=== PATIENT | female | born 2000 | race Caucasian/White ===

== ENCOUNTER 2021-10-18 14:26 | Inpatient (IN) | payer MEDICAID ==
[~2021-10-18] VITALS: Ht 154.9 cm; Wt 63.6 kg
[2021-10-18] VITALS (36 sets, daily range): BP systolic 103–142; BP diastolic 55–93; PULSE 70–811; TEMP 97.4–99.6
--- NOTE | 2021-10-18 14:35 | NUR ---
PT AMBULATORY TO UNIT, SENT OVER FROM CLINIC FOR CONFIRMED SROM VIA SPEC EXAM IN OFFICE PER REPORT. PT REPORTS SHE FIRST FELT LEAKING OF FLUID YESTERDAY AT APPROXIMATELY 1730. REPORTS FLUID HAS A "PINK TINGE". SVE AT CLINIC PRIOR TO ARRIVAL TO UNIT WAS PER PT REPORT. PLACED ON EFM/TOCO. CATEGORY 1 TRACING. NO CONTRACTIONS NOTED UPON ARRIVAL. TORB PER TO ADMIT PT FOR PITOCIN AUGMENTATION.
[2021-10-18] MEDS ORDERED: ZOLOFT 100MG100 MG PO (14:58)
[2021-10-18] MEDS ORDERED: NATURAL IRON65 MG (14:59)
[2021-10-18] MEDS ORDERED: PRENATAL (14:59)
[2021-10-18 15:26] LABS: BASO % 0.2 % (0.0-2.0); EOS % 0.2 % (0.0-4.0); GRAN # 10.4 K/mm3 (1.4-6.5); HEMOGLOBIN 10.4 g/dl (12.5-16.0); LYMPH # 1.4 K/mm3 (1.2-3.4); LYMPH % 10.6 % (20.0-51.0); MEAN CELL VOLUME 82 fl (80.0-100.0); MEAN CORPUSCULAR HEMOGLOBIN 28 pg (27-31); MEAN CORPUSCULAR HGB CONC 34 g/dl (33.0-37.0); MEAN PLATELET VOLUME 10.1 fl (7.4-10.4); MONO # 0.8 K/mm3 (0.1-0.6); MONO % 6.5 % (1.7-9.3); PLATELET COUNT 250 K/mm3 (130-400); RED BLOOD COUNT 3.78 M/mm3 (4.10-5.30)
--- NOTE | 2021-10-18 17:57 | NUR ---
[employer] CHEMISTRY PROFESSOR AT BEDSIDE. PT SITTING UP FOR EPIDURAL. EFM TRACING CATEGORY 1. MATERNAL VITAL SIGNS STABLE. 1755: SINGLE SHOT PER CADEN CURRAN. PT TOLERATED PROCEDURE WELL.
--- NOTE | 2021-10-18 19:10 | NUR ---
1910 - ANTONIO PLACED. SVE PERFORMED -/1. EFM TRACING INDESCERNIBLE DUE TO MATERNAL POSITION. PATIENT REPOSITIONED. EFM ADJUSTED. CARE ONGOING.
--- NOTE | 2021-10-18 23:32 | NUR ---
2332 - SVE PERFORMED BY THIS RN. PATIENT COMPLETE. 2334 - MD DERREK NOTIFIED OF PATIENT'S SVE. 2345 - MD DERREK AT BEDSIDE. PATIENT INSTRUCTED ON PUSHING. 2347 - PATIENT PUSHING WITH CONTRACTIONS. GOOD MATERNAL EFFORT. 2352 - SPONTANEOUS VAGINAL DELIVERY OF INFANT. HEAD FOLLOWED BY BODY. NURSERY RN ASSUMES CARE OF . 2355 - SPONTANEOUS DELIVERY OF INTACT PLACENTA. REPAIR OF BILATERAL LABIAL TEARS PERFORMED BY MD DERREK. PITOCIN BOLUS INITIATED. PERICARE PERFORMED. PATIENT REPOSITIONED. CARE ONGOING.
[2021-10-19] VITALS (12 sets, daily range): BP systolic 98–131; BP diastolic 56–77; PULSE 72–122; TEMP 97.7–99.7
--- NOTE | 2021-10-19 10:08 | NUR ---
Initial visit attempt; Family resting. [employer] left card of congratulations and God's blessings for the of their son and information regarding the availability of Spiritual Care at [facility].
[2021-10-20 08:15] VITALS: BP 108/54; PULSE 60; TEMP 97.6
[2021-10-20] MEDS ORDERED: IBU800 M1 PO (08:33)
--- NOTE | 2021-10-20 15:30 | NUR ---
bone worker met with patient due to referral for history of depression. The father of the baby and his mother were present during visit. This is first baby for patient. Father of the baby states they live with father's mother and that they have all of the needed supplies and support. Grandmother of baby agrees with the above information. Patient states that she will make a MTC appointment and worker provided the hospital financial counselor's contact information to assure that baby has completed medicaid application. Worker collaborated with nursing staff to provide mother with mental health resources.
--- NOTE | 2021-10-21 16:14 | NUR ---
SW informed to check on patient to check mental status. Upon arrival SW informed that patient discharged and was in good spirits upon departure. SW called patient to check in to see how she was doing since discharge. Patient stated that she was doing find and had no concerns. Nothing furher
== END 2021-10-20 13:15 | disposition home or self-care (01) | DRG 807 ==
LOC: LDR 14:26 → OB 14:26 → LDR 14:35 → OB 10-19 03:03 → LDRO 10-20 09:13 → OB 10-20 13:15 → EDSTATUS 10-20 14:22
PROVIDERS: ADMIT Student in an Organized Health Care Education/Training Program
PROC: 10E0XZZ Delivery of Products of Conception, External Approach (ICD-10-PCS; principal; 2021-10-19)
PROC: 0UQMXZZ Repair Vulva, External Approach (ICD-10-PCS; 2021-10-19)
PROC: 3E033VJ Introduction of Other Hormone into Peripheral Vein, Percutaneous Approach (ICD-10-PCS; 2021-10-19)
DX: O99.344 Other mental disorders complicating childbirth (principal); Z37.0 Single live birth; F32.A Depression, unspecified; Z3A.39 39 weeks gestation of pregnancy; Z87.891 Personal history of nicotine dependence; K21.9 Gastro-esophageal reflux disease without esophagitis; O99.62 Diseases of the digestive system complicating childbirth; O99.02 Anemia complicating childbirth; D64.9 Anemia, unspecified; K59.00 Constipation, unspecified; F41.9 Anxiety disorder, unspecified; O70.0 First degree perineal laceration during delivery
CPT/HCPCS: J0290; J2590; J2795; J7120